=== PATIENT | male | born 1950 | race Caucasian/White ===

== ENCOUNTER 2016-07-29 11:28 | Emergency (ER) | payer MEDICARE, OTHER ==
[2016-07-29] MEDS ORDERED: Sodium Chloride 0.9% 1000 ML 1,000 ML IV STA (11:58)
[2016-07-29 12:05] LABS: COMPLETE URINE MICROSCOPIC? YES; Collection Type VOID
[2016-07-29] MEDS ORDERED: Sodium Chloride 0.9% 1000 ML 1,000 ML ONE (12:10)
[2016-07-29 12:12] LABS: BASOPHIL % 0.4 % (0.0-0.4); Eosinophil % 0.6 % (0.00-5.0); Granulocytes % 77.2 % (36.0-66.0); Lymphocytes % 10.9 % (24.0-44.0); Mean Cell Volume 94.4 fl (78-100); Mean Corpuscular Hemoglobin 31.8 pg (26-32); Mean Platelet Volume 9.1 fl (6-9.5); Monocytes % 10.9 % (0.0-12.0); Platelet Count 220 K/mm3 (150-450); Red Blood Count 4.78 M/mm3 (4.1-5.6); Red Cell Distribution Width 12.5 % (11.5-14.0); White Blood Count 6.9 K/mm3 (4.0-10.5)
[2016-07-29 12:17] LABS: Mucus SLIGHT /HPF (NEGATIVE)
[2016-07-29 12:18] LABS: ADD URINE CULTURE? NO (NO); Bacteria FEW /HPF (NEGATIVE)
--- NOTE | 2016-07-29 12:19 | ERPHSYRPT ---
- History of Present Illness Time Seen by Provider: 07/29/16 11:58 Source: patient Exam Limitations: no limitations Patient Subjective Stated Complaint: pt co overwhelming weakness, and pain all over, for about a week ,pt states this has been going on for 6 years. unsure of whats going on. pt self caths, Triage Nursing Assessment: pt alert, resp easy, skin w/d,pink, no edema noted, moves all ext. well, pain all over, no injury noted Physician History: Pt. with generalized weakness for past 6 yrs and have been seen by Homicide Investigator for symptoms. Have had many laboratory tests ran and "polyneuropathy." States this week, pt. felt overwhelming weakness, no energy, decrease sleep, but no dizziness, lightheaded, headache, numbness or tingling. Pt. self-cath due to TURP performed 2 years ago. Denies any recent fever, chills, cough, chest pain, syncope, SOB, nasal congestion/rhinorrhea or sore throat. Denies any blurred vision, ataxia or vertigo. Timing/Duration: day(s) (5) Severity: moderate Modifying Factors: Improves With: movement (worsens), rest (improve) Associated Symptoms: No nausea, No vomiting, No shortness of breath, No headaches Allergies/Adverse Reactions: No Known Drug Allergies Allergy (Unverified 07/29/16 11:46) Home Medications: Levomefolate/B6/B12/Algal Oil [l-Methylfolate Ca P-5-P Me-Cbl] 1 ea DAILY [History] Hx Influenza Vaccination/Date Given: Yes Hx Pneumococcal Vaccination/Date Given: No Immunizations Up to Date: Yes - Review of Systems Constitutional: No Fever, No Chills Eyes: No Symptoms Ears, Nose, & Throat: No Symptoms Respiratory: Cough (dry), No Dyspnea Cardiac: No Chest Pain, No Edema, No Syncope Abdominal/Gastrointestinal: No Abdominal Pain, No Nausea, No Vomiting, No Diarrhea Genitourinary Symptoms: Incontinence, No Dysuria Musculoskeletal: Joint Redness, Joint Pain, No Back Pain, No Neck Pain Skin: No Rash Neurological: No Dizziness, No Focal Weakness, No Sensory Changes Psychological: No Symptoms Endocrine: No Symptoms Hematologic/Lymphatic: No Symptoms Immunological/Allergic: No Symptoms All Other Systems: Reviewed and Negative - Past Medical History Pertinent Past Medical History: No Neurological History: No Pertinent History ENT History: No Pertinent History Cardiac History: No Pertinent History Respiratory History: No Pertinent History Endocrine Medical History: No Pertinent History Musculoskeletal History: Osteoarthritis GI Medical History: No Pertinent History History: Other (Enlarged Prostate) Male Reproductive Disorders: Prostate Problems - Past Surgical History Past Surgical History: Yes Genitourinary: Other Musculoskeletal: Orthopedic Surgery Other Surgical History: turp ,shoulder - Social History Smoking Status: Never smoker Exposure to second hand smoke: No Alcohol Use: None Drug Use: none Patient Lives Alone: Yes Significant Family History: heart disease (enlarged heart, father, at 57 yo ) - Nursing Vital Signs Nursing Vital Signs: Initial Vital Signs Temperature 97.4 F Temperature Source Oral Pulse Rate 72 Respiratory Rate 16 Blood Pressure [Right Arm] 166/96 Pain Intensity 6 - Physical Exam General Appearance: no apparent distress, alert Eye Exam: PERRL/EOMI, eyes nml inspection Ears, Nose, Throat Exam: normal ENT inspection, TMs normal, pharynx normal, moist mucous membranes Neck Exam: normal inspection, non-tender, supple, full range of motion Respiratory Exam: normal breath sounds, lungs clear, No respiratory distress Cardiovascular Exam: regular rate/rhythm, normal heart sounds, normal peripheral pulses Gastrointestinal/Abdomen Exam: soft, normal bowel sounds, No tenderness, No mass Back Exam: normal inspection, normal range of motion, No CVA tenderness, No vertebral tenderness Extremity Exam: normal inspection, normal range of motion, pelvis stable Neurologic Exam: alert, oriented x 3, cooperative, normal mood/affect, nml cerebellar function, nml station & gait, sensation nml, No motor deficits Skin Exam: normal color, warm, dry, No rash Lymphatic Exam: No adenopathy SpO2: 97 Oxygen Delivery: Room Air - Course Nursing assessment & vital signs reviewed: Yes EKG Interpreted by Me: RATE (57), Sinus Rhythm, NORMAL AXIS, NORMAL QRS, Non- specific ST Changes - Radiology Exams Chest X-ray Interpretation: Teleradiologist Report, Infiltrates (R inf upper lobe) Ordered Tests: Active Orders 24 hr Category Date Time Status Clean Catch Urine Specimen STAT Care 07/29/16 11:58 Active EKG-ER Only STAT Care 07/29/16 11:58 Active CHEST 2 VIEWS (PA AND LAT) Stat Exams 07/29/16 11:59 Completed CBC W DIFF Stat Lab 07/29/16 12:00 Completed CMP Stat Lab 07/29/16 12:00 Completed RHEUMATOID FACTOR Stat Lab 07/29/16 12:00 Completed SED RATE [Erythrocyte Sedimentation Rate] Stat Lab 07/29/16 12:00 Completed UA W/ MICROSCOPIC Stat Lab 07/29/16 12:00 Completed Medication Summary Generic Name Dose Route Start Last Admin Trade Name Freq PRN Reason Stop Dose Admin Acetaminophen 1,000 mg 07/29/16 13:45 07/29/16 13:41 Tylenol Extra Strength 500 Mg PO 07/29/16 13:46 1,000 mg STAT ONE Administration Levofloxacin/Dextrose 500 mg in 100 mls @ 100 mls/hr 07/29/16 13:17 07/29/16 13:19 Levofloxacin 500mg/100ml D5w IV 07/29/16 14:16 100 mls/hr STAT STA Administration Discontinued Medications Generic Name Dose Route Start Last Admin Trade Name Freq PRN Reason Stop Dose Admin Acetaminophen Confirm 07/29/16 13:41 Tylenol Extra Strength 500 Mg Administered 07/29/16 13:42 Dose 1,000 mg .ROUTE .STK-MED ONE Sodium Chloride 1,000 mls @ 999 mls/hr 07/29/16 11:58 07/29/16 12:11 Sodium Chloride 0.9% 1000 Ml IV 07/29/16 12:58 999 mls/hr .Q1H1M STA Administration Sodium Chloride Confirm 07/29/16 12:10 Sodium Chloride 0.9% 1000 Ml Administered 07/29/16 12:11 Dose 1,000 mls @ ud .ROUTE .STK-MED ONE Levofloxacin/Dextrose Confirm 07/29/16 13:18 Levofloxacin 500mg/100ml D5w Administered 07/29/16 13:19 Dose 500 mg in 100 mls @ ud IV .STK-MED ONE Lab/Rad Data: Laboratory Result Diagrams 07/29/16 12:00 07/29/16 12:00 Laboratory Results 07/29/16 07/29/16 07/29/16 Range/Units 12:00 12:00 12:00 WBC (4.0-10.5) K/mm3 RBC (4.1-5.6) M/mm3 Hgb (12.5-18.0) gm/dl Hct (42-50) % MCV (78-100) fl MCH (26-32) pg MCHC (32-36) g/dl RDW (11.5-14.0) % Plt Count (150-450) K/mm3 MPV (6-9.5) fl Gran % (36.0-66.0) % Lymphocytes % (24.0-44.0) % Monocytes % (0.0-12.0) % Eosinophils % (0.00-5.0) % Basophils % (0.0-0.4) % Basophils # (0-0.4) ESR 31 H (0-15) mm/hr Sodium (136-145) mEq/L Potassium (3.5-5.1) mEq/L Chloride (98-107) mEq/L Carbon Dioxide (21-32) mEq/L Anion Gap (5-15) MEQ/L BUN (9-20) mg/dL Creatinine (0.55-1.30) mg/dl Estimated GFR ML/MIN Glucose (70-110) MG/DL Calcium (8.5-10.1) mg/dL Total Bilirubin (0.2-1.0) mg/dL AST (15-37) U/L ALT (12-78) U/L Alkaline Phosphatase (46-116) U/L Serum Total Protein (6.4-8.2) gm/dL Albumin (3.4-5.0) g/dL Ur Collection Type VOID Urine Color YELLOW (YELLOW) Urine Appearance CLEAR (CLEAR) Urine pH 6.0 (5-6) Ur Specific [place] 1.015 (1.005-1.025) Urine Protein 30 (Negative) Urine Glucose (UA) NEGATIVE (NEGATIVE) mg/dL Urine Ketones NEGATIVE (NEGATIVE) Urine Nitrite NEGATIVE (NEGATIVE) Urine Bilirubin NEGATIVE (NEGATIVE) Urine Urobilinogen 1 (0-1) mg/dL Urine WBC (Auto) TRACE (NEGATIVE) Urine RBC (Auto) TRACE-INTACT (0-5) Boom/ul Urine Microscopic RBC 0-2 (0-2) /HPF Urine Microscopic WBC 5-10 (0-5) /HPF Urine Bacteria FEW (NEGATIVE) /HPF Urine Mucus SLIGHT (NEGATIVE) /HPF Rheumatoid Factor Scrn NEGATIVE (Negative) Specimen Received 07/29/16 1200 07/29/16 07/29/16 Range/Units 12:00 12:00 WBC 6.9 (4.0-10.5) K/mm3 RBC 4.78 (4.1-5.6) M/mm3 Hgb 15.2 (12.5-18.0) gm/dl Hct 45.1 (42-50) % MCV 94.4 (78-100) fl MCH 31.8 (26-32) pg MCHC 33.7 (32-36) g/dl RDW 12.5 (11.5-14.0) % Plt Count 220 (150-450) K/mm3 MPV 9.1 (6-9.5) fl Gran % 77.2 H (36.0-66.0) % Lymphocytes % 10.9 L (24.0-44.0) % Monocytes % 10.9 (0.0-12.0) % Eosinophils % 0.6 (0.00-5.0) % Basophils % 0.4 (0.0-0.4) % Basophils # 0.03 (0-0.4) ESR (0-15) mm/hr Sodium 137 (136-145) mEq/L Potassium 3.9 (3.5-5.1) mEq/L Chloride 102 (98-107) mEq/L Carbon Dioxide 24.3 (21-32) mEq/L Anion Gap 14.8 (5-15) MEQ/L BUN 15 (9-20) mg/dL Creatinine 1.22 (0.55-1.30) mg/dl Estimated GFR > 60 ML/MIN Glucose 125 H (70-110) MG/DL Calcium 9.0 (8.5-10.1) mg/dL Total Bilirubin 0.70 (0.2-1.0) mg/dL AST 25 (15-37) U/L ALT 25 (12-78) U/L Alkaline Phosphatase 78 (46-116) U/L Serum Total Protein 7.4 (6.4-8.2) gm/dL Albumin 3.3 L (3.4-5.0) g/dL Ur Collection Type Urine Color (YELLOW) Urine Appearance (CLEAR) Urine pH (5-6) Ur Specific [place] (1.005-1.025) Urine Protein (Negative) Urine Glucose (UA) (NEGATIVE) mg/dL Urine Ketones (NEGATIVE) Urine Nitrite (NEGATIVE) Urine Bilirubin (NEGATIVE) Urine Urobilinogen (0-1) mg/dL Urine WBC (Auto) (NEGATIVE) Urine RBC (Auto) (0-5) Boom/ul Urine Microscopic RBC (0-2) /HPF Urine Microscopic WBC (0-5) /HPF Urine Bacteria (NEGATIVE) /HPF Urine Mucus (NEGATIVE) /HPF Rheumatoid Factor Scrn (Negative) Specimen Received - Progress Progress: improved Progress Note: 07/29/16 13:47 Pt. given Levaquin/IVF's and feels somewhat better Counseled pt/family regarding: lab results, diagnosis, rad results - Departure Time of Disposition: 13:48 Departure Disposition: Home Clinical Impression: UTI (urinary tract infection), Pneumonia Condition: Stable Critical Care Time: No Instructions: Pneumonia -- Adult, Urinary Tract Infection (UTI) Additional Instructions: RX: Levaquin Rest, drink plenty of fluids Motrin or Tylenol for fever Return for worse weakness, cough, fever, vomiting, short of breath or any problems. Prescriptions: Levofloxacin [Levaquin] 500 mg PO DAILY #10 tablet
[2016-07-29 12:37] LABS: ALBUMIN 3.3 g/dL (3.4-5.0); ALKALINE PHOSPHATASE 78 U/L (46-116); ANION GAP 14.8 MEQ/L (5-15); BLOOD UREA NITROGEN 15 mg/dL (9-20); CHLORIDE 102 mEq/L (98-107); Carbon Dioxide 24.3 mEq/L (21-32); Glucose 125 MG/DL (70-110); Potassium 3.9 mEq/L (3.5-5.1); SGOT/AST 25 U/L (15-37); SGPT/ALT 25 U/L (12-78); SODIUM 137 mEq/L (136-145); Total Protein 7.4 gm/dL (6.4-8.2)
--- NOTE | 2016-07-29 12:57 | XRAY ---
Indication: Cough. Comparison: September 17, 2007 PA/lateral chest remains hyperinflated with new inferior right upper lobe infiltrate. Remaining heart, lungs, and bony thorax unremarkable.
[2016-07-29] MEDS ORDERED: Levofloxacin 500MG/100ML D5W 500 MG/100 ML BAG IV STA (13:17)
[2016-07-29] MEDS ORDERED: Levofloxacin 500MG/100ML D5W 500 MG/100 ML BAG IV ONE (13:18)
[2016-07-29] MEDS ORDERED: TYLENOL EXTRA STRENGTH 500 MG ONE (13:41)
[2016-07-29] MEDS ORDERED: TYLENOL EXTRA STRENGTH 500 MG PO ONE (13:45)
[2016-07-29 13:50] VITALS: O2SAT 97
[2016-07-29 15:31] VITALS: BP 124/72; PULSE 72
== END 2016-07-29 15:30 | disposition home or self-care (01) ==
LOC: ED 11:28
DX: N39.0 Urinary tract infection, site not specified (principal); J18.9 Pneumonia, unspecified organism
CPT/HCPCS: 36000; 36415; 71020; 80053; 81000; 85025; 85652; 86140; 86430; 93005; 96360; 96361; 99284; J1956; A9270-GY

== ENCOUNTER 2018-01-20 12:11 | Emergency (ER) | payer MEDICARE, OTHER ==
[2018-01-20 13:24] LABS: BASOPHIL % 0.5 % (0.0-0.4); Basophil (Absolute #) 0.03 (0-0.4); Eosinophil % 2.1 % (0.00-5.0); Eosinophil (Absolute #) 0.14 (0-0.5); Granulocyte Absolute (ANC) 5.23 (1.4-6.9); Hematocrit 45.6 % (42-50); Hemoglobin 15.1 gm/dl (12.5-18.0); Lymphocytes % 10.7 % (24.0-44.0); Mean Cell Volume 96.6 fl (78-100); Mean Corpuscular Hgb Concent. 33.1 g/dl (32-36); Mean Platelet Volume 9.8 fl (6-9.5); Monocyte (Absolute #) 0.44 (0.0-1.3); Monocytes % 6.7 % (0.0-12.0); Platelet Count 232 K/mm3 (150-450); Red Blood Count 4.72 M/mm3 (4.1-5.6); Red Cell Distribution Width 12.9 % (11.5-14.0); White Blood Count 6.5 K/mm3 (4.0-10.5)
--- NOTE | 2018-01-20 13:32 | XRAY ---
Indication: Dyspnea. Palpitations. Comparison: August 10, 2016. Portable chest again demonstrates normal heart and lungs. Bony thorax intact again with mild degenerative changes and old left 6 rib fracture. New finding for old right clavicle fracture with intact plate/screws. Impression: Nonacute chest with chronic features.
[2018-01-20 13:41] LABS: ALBUMIN 4.4 g/dL (3.5-5.0); ALKALINE PHOSPHATASE 90 U/L (38-126); ANION GAP 10.5 MEQ/L (5-15); BLOOD UREA NITROGEN 21 mg/dL (9-20); CHLORIDE 105 mmol/L (98-107); Calcium 9.6 mg/dL (8.4-10.2); Carbon Dioxide 27 mmol/L (22-30); Creatinine 1 1.05 mg/dL (0.66-1.25); Glucose 114 mg/dL (74-106); SGOT/AST 28 U/L (17-59); SGPT/ALT 26 U/L (0-50); SODIUM 138 mmol/L (137-145)
[2018-01-20 14:12] VITALS: O2SAT 98
--- NOTE | 2018-01-20 14:28 | ERPHSYRPT ---
- History of Present Illness Time Seen by Provider: 01/20/18 12:15 Patient Subjective Stated Complaint: Pt states his heart feels like it is skipping beats. pt states it has been doing this for a long time but thought he should get it checked out. Triage Nursing Assessment: NSR irregular rate in the 60-70's Physician History: PATIENT COMPLAINS OF PALPITATIONS FOR YEARS, FEELS LIKE HEART SKIPPING BEATS. DENIES DYSPNEA, DIAPHORESIS, DIZZINESS, CHEST PAIN. STATES SYMPTOMS OCCUR MORE FREQUENT. Timing/Duration: day(s) Activities at Onset: none Location: substernal Chest Pain Radiation: no radiation Severity of Pain-Max: none Severity of Pain-Current: none Modifying Factors: Improves With: nothing Nitro Today/Relief: no nitro taken today Aspirin Treatment Today: no aspirin today Associated Symptoms: denies symptoms Prior Chest Pain/Cardiac Workup: no prior chest pain Allergies/Adverse Reactions: No Known Drug Allergies Allergy (Unverified 01/20/18 12:50) Home Medications: Levomefolate/B6/B12/Algal Oil [l-Methylfolate Ca P-5-P Me-Cbl] 1 ea PO DAILY 10/07 [History] Hydroxychloroquine Sulfate [Plaquenil] 200 mg PO 01/20/18 [History] Tamsulosin HCl 0.4 mg PO HS 01/20/18 [History] Hx Tetanus, Diphtheria Vaccination/Date Given: Yes Hx Influenza Vaccination/Date Given: No (shingles) Hx Pneumococcal Vaccination/Date Given: Yes Immunizations Up to Date: Yes - Review of Systems Constitutional: No Fever, No Chills Eyes: No Symptoms Ears, Nose, & Throat: No Symptoms Respiratory: No Symptoms, No Cough, No Dyspnea Cardiac: Palpitations, No Chest Pain, No Edema, No Syncope Abdominal/Gastrointestinal: No Symptoms, No Abdominal Pain, No Nausea, No Vomiting, No Diarrhea Genitourinary Symptoms: No Symptoms, No Dysuria Musculoskeletal: No Symptoms, No Back Pain, No Neck Pain Skin: No Rash Neurological: No Dizziness, No Focal Weakness, No Sensory Changes Psychological: No Symptoms Endocrine: No Symptoms All Other Systems: Reviewed and Negative - Past Medical History Pertinent Past Medical History: No Neurological History: No Pertinent History ENT History: Cataracts Cardiac History: No Pertinent History Respiratory History: No Pertinent History Endocrine Medical History: No Pertinent History Musculoskeletal History: No Pertinent History GI Medical History: No Pertinent History History: Other Psycho-Social History: No Pertinent History Male Reproductive Disorders: Prostate Problems - Past Surgical History Past Surgical History: Yes Genitourinary: Other Musculoskeletal: Orthopedic Surgery Other Surgical History: turp ,shoulder - Social History Smoking Status: Never smoker Exposure to second hand smoke: No Alcohol Use: None Drug Use: none Patient Lives Alone: Yes Significant Family History: heart disease (enlarged heart, father, at 57 yo ) - Nursing Vital Signs Nursing Vital Signs: Initial Vital Signs Temperature 97.5 F 01/20/18 12:11 Pulse Rate 70 01/20/18 12:11 Respiratory Rate 16 01/20/18 12:11 Blood Pressure 127/77 01/20/18 12:11 O2 Sat by Pulse Oximetry 98 01/20/18 12:11 Pain Scale Pain Intensity 0 - Physical Exam General Appearance: no apparent distress, alert Eye Exam: PERRL/EOMI, eyes nml inspection Ears, Nose, Throat Exam: normal ENT inspection, moist mucous membranes Neck Exam: normal inspection, non-tender, supple Respiratory Exam: normal breath sounds, lungs clear, No respiratory distress Cardiovascular Exam: regular rate/rhythm, normal heart sounds, irregular, No edema Gastrointestinal/Abdomen Exam: soft, No tenderness, No mass Back Exam: normal inspection, No CVA tenderness, No vertebral tenderness Extremity Exam: normal inspection, normal range of motion Neurologic Exam: alert, oriented x 3, cooperative, normal mood/affect, nml cerebellar function, sensation nml, No motor deficits Skin Exam: normal color, warm, dry Lymphatic Exam: No adenopathy SpO2: 98 Oxygen Delivery: Room Air - Course EKG Interpreted by Me: RATE, NORMAL AXIS, Other (SINUS ARRHYTHMIA WITH PAC'S) - Radiology Exams Chest X-ray Interpretation: Discussed w/ radiologist, Negative, No Infiltrates Ordered Tests: Active Orders 24 hr Category Date Time Status Sales Representative STAT Care 01/20/18 13:10 Active EKG-ER Only STAT Care 01/20/18 13:09 Active IV Insertion STAT Care 01/20/18 13:09 Active CHEST 1 VIEW (PORTABLE) Stat Exams 01/20/18 13:09 Completed CBC W DIFF Stat Lab 01/20/18 13:09 Completed CMP Stat Lab 01/20/18 13:29 Completed TROPONIN Q3H Lab 01/20/18 13:29 Completed TROPONIN Q3H Lab 01/20/18 16:15 Ordered TROPONIN Q3H Lab 01/20/18 19:15 Ordered TROPONIN Q3H Lab 01/20/18 22:15 Ordered TROPONIN Q3H Lab 01/21/18 01:15 Ordered Holter Monitor ONCE RT 01/20/18 14:17 Active Lab/Rad Data: Laboratory Result Diagrams 01/20/18 13:09 01/20/18 13:29 Laboratory Results 01/20/18 01/20/18 01/20/18 Range/Units 13:29 13:29 13:09 WBC 6.5 (4.0-10.5) K/mm3 RBC 4.72 (4.1-5.6) M/mm3 Hgb 15.1 (12.5-18.0) gm/dl Hct 45.6 (42-50) % MCV 96.6 (78-100) fl MCH 32.0 (26-32) pg MCHC 33.1 (32-36) g/dl RDW 12.9 (11.5-14.0) % Plt Count 232 (150-450) K/mm3 MPV 9.8 H (6-9.5) fl Gran % 80.0 H (36.0-66.0) % Eos # (Auto) 0.14 (0-0.5) Absolute Lymphs (auto) 0.70 L (1.0-4.6) Absolute Monos (auto) 0.44 (0.0-1.3) Lymphocytes % 10.7 L (24.0-44.0) % Monocytes % 6.7 (0.0-12.0) % Eosinophils % 2.1 (0.00-5.0) % Basophils % 0.5 (0.0-0.4) % Absolute Granulocytes 5.23 (1.4-6.9) Basophils # 0.03 (0-0.4) Sodium 138 (137-145) mmol/L Potassium 4.0 (3.5-5.1) mmol/L Chloride 105 (98-107) mmol/L Carbon Dioxide 27 (22-30) mmol/L Anion Gap 10.5 (5-15) MEQ/L BUN 21 H (9-20) mg/dL Creatinine 1.05 (0.66-1.25) mg/dL Estimated GFR > 60.0 ML/MIN Glucose 114 H (74-106) mg/dL Calcium 9.6 (8.4-10.2) mg/dL Total Bilirubin 0.90 (0.2-1.3) mg/dL AST 28 (17-59) U/L ALT 26 (0-50) U/L Alkaline Phosphatase 90 (38-126) U/L Troponin I < 0.012 (0.000-0.034) ng/mL Serum Total Protein 7.0 (6.3-8.2) g/dL Albumin 4.4 (3.5-5.0) g/dL - Progress Progress Note: 01/20/18 14:35 OFFERED HOLTER MONITOR FOR 48 HOURS BUT PATIENT REFUSED. Counseled pt/family regarding: lab results, diagnosis, need for follow-up, rad results - Departure Time of Disposition: 14:40 Departure Disposition: Home Clinical Impression: ARRHYTHMIA PREMATURE ATRIAL CONTRACTIONS Condition: Stable Critical Care Time: No Referrals: GEORGIA AMES [Primary Care Provider] - Additional Instructions: CONSULT YOUR PRIMARY CARE PROVIDER FOR FOLLOWUP IN 4-5 DAYS. RETURN TO EMERGENCY FOR SYMPTOMS.
[2018-01-20 15:13] VITALS: BP 125/77; PULSE 56
== END 2018-01-20 14:57 | disposition home or self-care (01) ==
LOC: ED 12:11
DX: I49.1 Atrial premature depolarization (principal); Z79.899 Other long term (current) drug therapy
CPT/HCPCS: 36000; 36415; 71045; 80053; 84484; 85025; 93005; 93041; 99284